=== PATIENT | female | born 1955 | race African-American/Black ===

== ENCOUNTER 2020-05-13 21:42 | Inpatient (IN) | payer MEDICARE, MEDICAID ==
[2020-05-13] MEDS ORDERED: Norepinephrine 8 MG/0.9% NS 250 ML ONE (21:49)
[2020-05-13] MEDS ORDERED: Cefepime 2 GM in Sodium Chloride 0.9% 100 ML IVPB SCH (22:15)
[2020-05-13 22:16] LABS: Actual Bicarbonate (HCO3a) 19.8 mEq/L (22-28); Analyzer IN Cardio ER; Base Excess (BEa) -8.9 mEq/L (-2.0 to +3.0); CO2 Tension 57.3 mmHg (35.0-45.0); Calcium, Ionized (arterial) 1.13 mmol/L (1.12-1.30); Carboxyhemoglobin (COHb) 0.7 gm% (0.0-3.0); Hemoglobin (Hb) 10.2 g/dL (12.0-16.0)
[2020-05-13 22:18] LABS: pH, Arterial 7.16 (7.35-7.45)
[2020-05-13 22:19] LABS: ALV-art Gradient 307.475 mmHg (0-20); Puncture Site LBA
[2020-05-13 22:20] LABS: Bilirubin Negative (Negative); Blood, Urine 1+ (Negative); Clarity Turbid (Clear); Glucose, Urine (Dipstick) 200 mg/dL (Negative); Ketone, Urine Negative (Negative); Leukocyte 250 Leu/uL (Negative); Nitrite Negative (Negative); Protein, Urine (Dipstick) 300 mg/dL (Neg-Trace); RBC/HPF 21-50 HPF (0-3); Specific Gravity, Urine 1.011 (1.002-1.036); Squamous Epithelial None Seen HPF (0-3); Urobilinogen Normal mg/dL (Less than 2); WBC/HPF Greater than 50 HPF (0-3)
[2020-05-13 22:22] LABS: Bacteria/HPF 1+ HPF (None Seen)
[2020-05-13 22:27] LABS: Alcohol Less than 10 mg/dL (Less than 10)
[2020-05-13 22:30] LABS: Albumin 3.4 g/dL (3.4-4.8)
[2020-05-13 22:31] LABS: Chloride 111 mmol/L (98-107); Potassium 5.9 mmol/L (3.5-5.1); Sodium 141 mmol/L (136-145)
[2020-05-13 22:32] LABS: Calcium 7.7 mg/dL (7.8-10.44); Globulin 3.4 g/dL (2.4-3.5); Glucose 267 mg/dL (80-115); Protein, Total 6.8 g/dL (5.8-8.1)
[2020-05-13 22:33] LABS: Carbon Dioxide 17 mmol/L (23-31)
[2020-05-13 22:34] LABS: Bilirubin, Total 0.3 mg/dL (0.2-1.2)
[2020-05-13 22:35] LABS: Alkaline Phosphatase 154 U/L (40-110); Calc. Creatinine Clearance 0 mL/min (70-130)
[2020-05-13 22:36] LABS: BUN (Urea Nitrogen) 48 mg/dL (9.8-20.1)
[2020-05-13 22:37] LABS: AST (SGOT) 148 U/L (5-34); Mean Corpuscular HGB CONC 30.7 g/dL (32.0-36.0); Mean Corpuscular Hemoglobin 29.7 pg (27.0-31.0); Mean Corpuscular Volume 96.9 fL (78.0-98.0); Mean Platelet Volume 10.5 fL (7.4-10.4); Platelet Count 200 thou/uL (130-400); RBC Distribution Width 18.6 % (11.5-14.5); Red Blood Cell (RBC) Count 3.38 mill/uL (4.20-5.40); White Blood Cell (WBC) Count 11.1 thou/uL (4.8-10.8)
[2020-05-13 22:38] LABS: ALT (SGPT) 103 U/L (8-55)
[2020-05-13 22:45] LABS: Acetaminophen Less than 6.0 mcg/mL (10.0-30.0); Salicylate Less than 8.0 mg/dL (15.0-30.0)
[2020-05-13 22:52] LABS: Anion Gap 19 mmol/L (10-20)
[2020-05-13 22:53] LABS: CKMB 3.5 ng/mL (0-6.6)
[2020-05-13 22:59] LABS: Band 9 % (5-11); Eosinophils 2 % (0-10); Lymphocytes 21 % (21-51); MDiff Complete? YES; Monocytes 2 % (0-10); Neutrophil 65 % (42-75)
[2020-05-13] MEDS ORDERED: Aspirin 300 MG Suppository ONE (22:59)
[2020-05-13] MEDS ORDERED: Vancomycin 1 GM/200 ML BAG ONE (23:14)
[2020-05-13 23:41] LABS: SARS-CoV-2 NAA Rapid Test Not Detected (NotDetected)
[2020-05-14 01:40] LABS: Troponin I 0.835 ng/mL (< 0.028)
[2020-05-14] MEDS ORDERED: DISCONTINUE PREVIOUS NARCOTIC PAIN MEDICATIONS AND BENZODIAZEPINES FS SCH (01:45)
[2020-05-14] MEDS ORDERED: Morphine 2 MG/ML VIAL SLOW IVP PRN (01:45)
[2020-05-14] MEDS ORDERED: Lorazepam 2 MG/ML VIAL SLOW IVP PRN (01:45)
[2020-05-14] MEDS ORDERED: Propofol BOLUS 1,000 MG/100 ML VIAL IV PRN (01:45)
[2020-05-14] MEDS ORDERED: Fentanyl BOLUS 250 ML IVPB PRN (01:45)
[2020-05-14] MEDS ORDERED: Ventilator Sedation Protocol 1 EACH FS SCH (02:00)
[2020-05-14 02:27] LABS: Lactic Acid 1.2 mmol/L (0.5-2.2)
[2020-05-14] MEDS ORDERED: Acetaminophen 325 MG TAB PO PRN (03:02)
[2020-05-14] MEDS ORDERED: Acetaminophen 650 MG Suppository PR PRN (03:02)
[2020-05-14 04:25] LABS: #Eosinphils 0.1 thou/uL (0.0-0.7); #Monocytes 0.5 thou/uL (0.11-0.59); #Neutrophils 8.2 thou/uL (1.40-6.50); %Basophils 0.3 % (0.0-1.0); %Eosinophils 0.5 % (0.0-10.0); %Lymphocytes 9.8 % (21.0-51.0); %Monocytes 5.1 % (0.0-10.0); %Neutrophils 84.3 % (42.0-75.0); Hemoglobin 9.6 g/dL (12.0-16.0); Mean Corpuscular HGB CONC 31.8 g/dL (32.0-36.0); Mean Corpuscular Hemoglobin 30.8 pg (27.0-31.0); Mean Corpuscular Volume 96.9 fL (78.0-98.0); Mean Platelet Volume 10.6 fL (7.4-10.4); Platelet Count 172 thou/uL (130-400); RBC Distribution Width 18.5 % (11.5-14.5); Red Blood Cell (RBC) Count 3.13 mill/uL (4.20-5.40); White Blood Cell (WBC) Count 9.7 thou/uL (4.8-10.8)
[2020-05-14 04:28] LABS: Anion Gap 13 mmol/L (10-20); BUN (Urea Nitrogen) 50 mg/dL (9.8-20.1); Calc. Creatinine Clearance 31 mL/min (70-130); Calcium 7.6 mg/dL (7.8-10.44); Carbon Dioxide 20 mmol/L (23-31); Chloride 112 mmol/L (98-107); Glucose 259 mg/dL (80-115); Potassium 5.3 mmol/L (3.5-5.1); Sodium 140 mmol/L (136-145)
[2020-05-14 04:46] LABS: Troponin I 2.702 ng/mL (< 0.028)
[2020-05-14] MEDS: hydrALAZINE 20 MG/ML VIAL SLOW IVP PRN (05:03)
[2020-05-14] MEDS ORDERED: Enoxaparin Sodium 120 MG/0.8 ML SYRINGE SC SCH (05:45)
[2020-05-14 06:21] LABS: Actual Bicarbonate (HCO3a) 19.7 mEq/L (22-28); Base Excess (BEa) -7.6 mEq/L (-2.0 to +3.0); CO2 Tension 47.7 mmHg (35.0-45.0); Calcium, Ionized (arterial) 1.09 mmol/L (1.12-1.30); Carboxyhemoglobin (COHb) 1.7 gm% (0.0-3.0); Hemoglobin (Hb) 9.9 g/dL (12.0-16.0); O2 Tension (PaO2), arterial 74.4 mmHg (> 80.0); Potassium - ABG Lab 5.52 mmol/L (3.70-5.30)
[2020-05-14 06:24] LABS: ALV-art Gradient 293.775 mmHg (0-20); Puncture Site LBA; pH, Arterial 7.23 (7.35-7.45)
[2020-05-14] MEDS ORDERED: Dextrose 5% in Water 1,000 ML IV PRN (07:30)
[2020-05-14] MEDS ORDERED: Dextrose 50% Abboject 50 ML SYRINGE IVP PRN (07:30)
[2020-05-14] MEDS ORDERED: Enoxaparin Sodium 30 MG/0.3 ML SYRINGE SC SCH (09:00)
[2020-05-14] MEDS: methylPREDNISolone Sod Succ 40 MG VIAL IVP SCH ×2 (10:54→20:53)
[2020-05-14] MEDS: cefTRIAXone\\ROCEPHIN 1 GM in Sodium Chloride 0.9% 100 ML IVPB SCH (10:55)
[2020-05-14] MEDS ORDERED: Fentanyl CADD 100 ML ONE (16:43)
[2020-05-14] MEDS: Fentanyl CADD 100 ML IV SCH (16:46)
[2020-05-14] MEDS: HumaLOG 300 UNITS/3 ML VIAL SC PRN (16:46)
[2020-05-14] MEDS: azaTHIOprine 50 MG TAB PO SCH (20:46)
[2020-05-14] MEDS: Carvedilol 25 MG TAB PO SCH (20:46)
[2020-05-14] MEDS ORDERED: Famotidine/PF 20 mg/2ml Vial SLOW IVP SCH (21:00)
[2020-05-14 22:17] LABS: Vancomycin, Random 8.4 ug/mL (See Comment)
[2020-05-14] MEDS ORDERED: VANCOMYCIN 1.25 GM/250 ML BAG 1.25 GM in Premix Bag 1 BAG IVPB SCH (23:00)
[2020-05-14] MEDS ORDERED: Vancomycin 1 GM in Premix Bag 1 BAG IVPB SCH (23:00)
[2020-05-14] MEDS: Propofol 1,000 MG/100 ML VIAL IV PRN (23:39)
[2020-05-15] MEDS: hydrALAZINE 20 MG/ML VIAL SLOW IVP PRN (02:00)
[2020-05-15 04:25] LABS: #Monocytes 0.5 thou/uL (0.11-0.59); #Neutrophils 12.4 thou/uL (1.40-6.50); %Basophils 0.2 % (0.0-1.0); %Eosinophils 0.1 % (0.0-10.0); %Lymphocytes 7.2 % (21.0-51.0); %Monocytes 3.5 % (0.0-10.0); %Neutrophils 89.1 % (42.0-75.0); Hemoglobin 8.6 g/dL (12.0-16.0); Mean Corpuscular HGB CONC 31.1 g/dL (32.0-36.0); Mean Corpuscular Hemoglobin 29.6 pg (27.0-31.0); Mean Corpuscular Volume 95.3 fL (78.0-98.0); Platelet Count 158 thou/uL (130-400); RBC Distribution Width 18.4 % (11.5-14.5); Red Blood Cell (RBC) Count 2.89 mill/uL (4.20-5.40); White Blood Cell (WBC) Count 13.9 thou/uL (4.8-10.8)
[2020-05-15] MEDS: HumaLOG 300 UNITS/3 ML VIAL SC PRN ×5 (04:46→21:38)
[2020-05-15 04:52] LABS: Anion Gap 15 mmol/L (10-20); BUN (Urea Nitrogen) 52 mg/dL (9.8-20.1); Calc. Creatinine Clearance 29 mL/min (70-130); Calcium 8.1 mg/dL (7.8-10.44); Carbon Dioxide 16 mmol/L (23-31); Chloride 114 mmol/L (98-107); Glucose 259 mg/dL (80-115); Potassium 5.4 mmol/L (3.5-5.1); Sodium 140 mmol/L (136-145)
[2020-05-15 06:48] LABS: Actual Bicarbonate (HCO3a) 18.5 mEq/L (22-28); Base Excess (BEa) -6.8 mEq/L (-2.0 to +3.0); CO2 Tension 36.1 mmHg (35.0-45.0); Calcium, Ionized (arterial) 1.17 mmol/L (1.12-1.30); Hemoglobin (Hb) 8.5 g/dL (12.0-16.0); O2 Tension (PaO2), arterial 66.7 mmHg (> 80.0); Potassium - ABG Lab 5.23 mmol/L (3.70-5.30); Puncture Site LBA; pH, Arterial 7.33 (7.35-7.45)
[2020-05-15 06:49] LABS: ALV-art Gradient 173.375 mmHg (0-20)
[2020-05-15] MEDS: Rosuvastatin 10 MG TAB PO SCH (08:34)
[2020-05-15] MEDS: Heparin 5,000 UNITS/ML VIAL SC SCH ×2 (08:34→21:37)
[2020-05-15] MEDS: methylPREDNISolone Sod Succ 40 MG VIAL IVP SCH ×2 (08:34→21:39)
[2020-05-15] MEDS: Pantoprazole 40 MG GRANULES PACKET PO SCH (08:34)
[2020-05-15] MEDS: Carvedilol 25 MG TAB PO SCH ×2 (08:34→21:43)
[2020-05-15] MEDS: Aspirin Chewable 81 MG TAB PO SCH (08:34)
[2020-05-15] MEDS: cefTRIAXone\\ROCEPHIN 1 GM in Sodium Chloride 0.9% 100 ML IVPB SCH (08:34)
[2020-05-15] MEDS: azaTHIOprine 50 MG TAB PO SCH ×2 (08:34→21:38)
[2020-05-15] MEDS ORDERED: Fentanyl CADD 100 ML ONE (09:11)
[2020-05-15] MEDS: Sodium Bicarbonate Tab 325 MG TAB PO SCH ×3 (12:40→21:38)
[2020-05-15] MEDS: LOKELMA 10 GM PACKET PO SCH (12:40)
[2020-05-15] MEDS ORDERED: Furosemide 40 MG/4 ML VIAL SLOW IVP SCH (16:00)
[2020-05-15] MEDS: Propofol 1,000 MG/100 ML VIAL IV PRN ×2 (18:54→22:36)
[2020-05-15] MEDS ORDERED: Pantoprazole 40 MG VIAL IVP SCH (21:00)
[2020-05-15 22:24] LABS: Vancomycin, Random 19.2 ug/mL (See Comment)
[2020-05-15] MEDS ORDERED: Vancomycin HCl 750 MG in Sodium Chloride 0.9% 250 ML 250 ML IVPB SCH (23:00)
[2020-05-16] MEDS: HumaLOG 300 UNITS/3 ML VIAL SC PRN ×6 (02:20→20:52)
[2020-05-16] MEDS: hydrALAZINE 20 MG/ML VIAL SLOW IVP PRN (04:00)
[2020-05-16] MEDS ORDERED: Fentanyl CADD 100 ML ONE ×2 (04:04→23:44)
[2020-05-16 04:18] LABS: #Lymphocytes 0.9 thou/uL (1.20-3.40); #Monocytes 0.4 thou/uL (0.11-0.59); #Neutrophils 10.7 thou/uL (1.40-6.50); %Basophils 0.1 % (0.0-1.0); %Lymphocytes 7.2 % (21.0-51.0); %Monocytes 3.5 % (0.0-10.0); %Neutrophils 89.1 % (42.0-75.0); Hemoglobin 8.6 g/dL (12.0-16.0); Mean Corpuscular HGB CONC 30.2 g/dL (32.0-36.0); Mean Corpuscular Hemoglobin 28.7 pg (27.0-31.0); Mean Corpuscular Volume 95.1 fL (78.0-98.0); Mean Platelet Volume 11.2 fL (7.4-10.4); Platelet Count 165 thou/uL (130-400); RBC Distribution Width 18.8 % (11.5-14.5); Red Blood Cell (RBC) Count 2.98 mill/uL (4.20-5.40)
[2020-05-16 04:39] LABS: Anion Gap 14 mmol/L (10-20); BUN (Urea Nitrogen) 71 mg/dL (9.8-20.1); Calc. Creatinine Clearance 27 mL/min (70-130); Calcium 8.5 mg/dL (7.8-10.44); Carbon Dioxide 19 mmol/L (23-31); Chloride 111 mmol/L (98-107); Glucose 262 mg/dL (80-115); Potassium 5.5 mmol/L (3.5-5.1); Sodium 138 mmol/L (136-145)
[2020-05-16] MEDS: Furosemide 40 MG/4 ML VIAL SLOW IVP SCH (08:01)
[2020-05-16] MEDS: Sodium Bicarbonate Tab 325 MG TAB PO SCH ×2 (08:02→20:54)
[2020-05-16] MEDS: Rosuvastatin 10 MG TAB PO SCH (08:02)
[2020-05-16] MEDS: Aspirin Chewable 81 MG TAB PO SCH (08:02)
[2020-05-16] MEDS: azaTHIOprine 50 MG TAB PO SCH ×2 (08:02→20:54)
[2020-05-16] MEDS: Pantoprazole 40 MG GRANULES PACKET PO SCH (08:02)
[2020-05-16] MEDS: Carvedilol 25 MG TAB PO SCH ×2 (08:02→21:04)
[2020-05-16] MEDS: Heparin 5,000 UNITS/ML VIAL SC SCH ×2 (08:03→20:53)
[2020-05-16] MEDS: methylPREDNISolone Sod Succ 40 MG VIAL IVP SCH ×3 (08:03→20:54)
[2020-05-16] MEDS ORDERED: Bacteriostatic Water 30 ML VIAL FS PRN (08:15)
[2020-05-16] MEDS: cefTRIAXone\\ROCEPHIN 1 GM in Sodium Chloride 0.9% 100 ML IVPB SCH (08:54)
[2020-05-16] MEDS: LOKELMA 10 GM PACKET PO SCH (10:09)
[2020-05-16] MEDS: Propofol 1,000 MG/100 ML VIAL IV PRN (13:40)
[2020-05-16 22:58] LABS: Vancomycin, Trough 20.2 ug/mL
[2020-05-16] MEDS ORDERED: Vancomycin 1 GM in Premix Bag 1 BAG IVPB SCH (23:00)
[2020-05-17] MEDS: HumaLOG 300 UNITS/3 ML VIAL SC PRN ×4 (01:22→20:53)
[2020-05-17] MEDS: Propofol 1,000 MG/100 ML VIAL IV PRN ×3 (02:32→20:46)
[2020-05-17 04:00] LABS: #Lymphocytes 0.8 thou/uL (1.20-3.40); #Monocytes 0.4 thou/uL (0.11-0.59); #Neutrophils 9.2 thou/uL (1.40-6.50); %Basophils 0.2 % (0.0-1.0); %Eosinophils 0.1 % (0.0-10.0); %Monocytes 3.8 % (0.0-10.0); %Neutrophils 87.9 % (42.0-75.0); Hemoglobin 8.2 g/dL (12.0-16.0); Mean Corpuscular HGB CONC 31.1 g/dL (32.0-36.0); Mean Corpuscular Hemoglobin 29.5 pg (27.0-31.0); Mean Platelet Volume 10.9 fL (7.4-10.4); Platelet Count 157 thou/uL (130-400); RBC Distribution Width 18.4 % (11.5-14.5); Red Blood Cell (RBC) Count 2.79 mill/uL (4.20-5.40); White Blood Cell (WBC) Count 10.5 thou/uL (4.8-10.8)
[2020-05-17 04:19] LABS: Anion Gap 16 mmol/L (10-20); BUN (Urea Nitrogen) 85 mg/dL (9.8-20.1); Calc. Creatinine Clearance 24 mL/min (70-130); Calcium 8.4 mg/dL (7.8-10.44); Carbon Dioxide 19 mmol/L (23-31); Chloride 114 mmol/L (98-107); Glucose 277 mg/dL (80-115); Potassium 5.5 mmol/L (3.5-5.1); Sodium 143 mmol/L (136-145)
[2020-05-17] MEDS: methylPREDNISolone Sod Succ 40 MG VIAL IVP SCH ×2 (09:00→20:45)
[2020-05-17] MEDS: LOKELMA 10 GM PACKET PO SCH (09:00)
[2020-05-17] MEDS: Aspirin Chewable 81 MG TAB PO SCH (09:00)
[2020-05-17] MEDS: Rosuvastatin 10 MG TAB PO SCH (09:00)
[2020-05-17] MEDS: Pantoprazole 40 MG GRANULES PACKET PO SCH (10:32)
[2020-05-17] MEDS: Furosemide 40 MG/4 ML VIAL SLOW IVP SCH (10:32)
[2020-05-17] MEDS: Carvedilol 25 MG TAB PO SCH ×2 (10:37→20:44)
[2020-05-17] MEDS: Heparin 5,000 UNITS/ML VIAL SC SCH ×2 (10:37→20:44)
[2020-05-17] MEDS: azaTHIOprine 50 MG TAB PO SCH ×2 (10:37→20:44)
[2020-05-17] MEDS: cefTRIAXone\\ROCEPHIN 1 GM in Sodium Chloride 0.9% 100 ML IVPB SCH (10:43)
[2020-05-17] MEDS: Sodium Bicarbonate Tab 325 MG TAB PO SCH ×2 (10:43→20:44)
[2020-05-17] MEDS ORDERED: LOKELMA 5 GM PACKET PO SCH (12:30)
[2020-05-17] MEDS ORDERED: Fentanyl CADD 100 ML ONE (18:57)
[2020-05-17] MEDS ORDERED: Vancomycin HCl 750 MG in Sodium Chloride 0.9% 250 ML 250 ML IVPB SCH (23:00)
[2020-05-18] MEDS: HumaLOG 300 UNITS/3 ML VIAL SC PRN ×2 (00:30→03:21)
[2020-05-18 03:57] LABS: #Lymphocytes 0.6 thou/uL (1.20-3.40); #Monocytes 0.4 thou/uL (0.11-0.59); #Neutrophils 8.3 thou/uL (1.40-6.50); %Eosinophils 0.1 % (0.0-10.0); %Lymphocytes 6.6 % (21.0-51.0); %Monocytes 4.7 % (0.0-10.0); %Neutrophils 88.5 % (42.0-75.0); Hemoglobin 8.6 g/dL (12.0-16.0); Mean Corpuscular HGB CONC 30.8 g/dL (32.0-36.0); Mean Corpuscular Hemoglobin 29.9 pg (27.0-31.0); Mean Corpuscular Volume 96.9 fL (78.0-98.0); Mean Platelet Volume 10.6 fL (7.4-10.4); Platelet Count 165 thou/uL (130-400); RBC Distribution Width 18.1 % (11.5-14.5); Red Blood Cell (RBC) Count 2.89 mill/uL (4.20-5.40); White Blood Cell (WBC) Count 9.4 thou/uL (4.8-10.8)
[2020-05-18 04:13] LABS: Anion Gap 17 mmol/L (10-20); BUN (Urea Nitrogen) 102 mg/dL (9.8-20.1); Calc. Creatinine Clearance 23 mL/min (70-130); Calcium 7.9 mg/dL (7.8-10.44); Carbon Dioxide 19 mmol/L (23-31); Chloride 113 mmol/L (98-107); Glucose 232 mg/dL (80-115); Potassium 5.6 mmol/L (3.5-5.1); Sodium 143 mmol/L (136-145)
[2020-05-18 07:49] LABS: Actual Bicarbonate (HCO3a) 18.9 mEq/L (22-28); Base Excess (BEa) -7.9 mEq/L (-2.0 to +3.0); Calcium, Ionized (arterial) 1.16 mmol/L (1.12-1.30); Carboxyhemoglobin (COHb) 0.8 gm% (0.0-3.0); Hemoglobin (Hb) 9.6 g/dL (12.0-16.0); O2 Tension (PaO2), arterial 134.8 mmHg (> 80.0); Potassium - ABG Lab 5.57 mmol/L (3.70-5.30)
[2020-05-18 07:54] LABS: Puncture Site LRA; pH, Arterial 7.25 (7.35-7.45)
[2020-05-18] MEDS: Propofol 1,000 MG/100 ML VIAL IV PRN ×2 (08:32→17:19)
[2020-05-18] MEDS: Sodium Bicarbonate Tab 325 MG TAB PO SCH (08:38)
[2020-05-18] MEDS: methylPREDNISolone Sod Succ 40 MG VIAL IVP SCH (08:39)
[2020-05-18] MEDS: Aspirin Chewable 81 MG TAB PO SCH (08:43)
[2020-05-18] MEDS: Furosemide 40 MG/4 ML VIAL SLOW IVP SCH (08:43)
[2020-05-18] MEDS: azaTHIOprine 50 MG TAB PO SCH (08:43)
[2020-05-18] MEDS: Pantoprazole 40 MG GRANULES PACKET PO SCH (08:43)
[2020-05-18] MEDS: Rosuvastatin 10 MG TAB PO SCH (08:43)
[2020-05-18] MEDS: Carvedilol 25 MG TAB PO SCH (08:43)
[2020-05-18] MEDS: Heparin 5,000 UNITS/ML VIAL SC SCH (08:44)
[2020-05-18] MEDS: cefTRIAXone\\ROCEPHIN 1 GM in Sodium Chloride 0.9% 100 ML IVPB SCH (08:48)
[2020-05-18] MEDS ORDERED: LOKELMA 5 GM PACKET PO SCH ×2 (09:00)
[2020-05-18 13:41] VITALS: BMI 41.4
[2020-05-18 14:19] VITALS: BP 122/61
[2020-05-18] MEDS: Fentanyl CADD 100 ML IV SCH (17:07)
[2020-05-18 17:22] VITALS: TEMP 98.8
== END 2020-05-18 17:41 | disposition hospice, inpatient (51) | DRG 870 ==
LOC: ERS 21:42 → CCU 05-14 00:10
PROVIDERS: ADMIT Student in an Organized Health Care Education/Training Program; ATTEND Internal Medicine
PROC: 5A1955Z Respiratory Ventilation, Greater than 96 Consecutive Hours (ICD-10-PCS; principal; 2020-05-14)
PROC: 3E033XZ Introduction of Vasopressor into Peripheral Vein, Percutaneous Approach (ICD-10-PCS; 2020-05-14)
PROC: 06HY33Z Insertion of Infusion Device into Lower Vein, Percutaneous Approach (ICD-10-PCS; 2020-05-14)
DX: A41.9 Sepsis, unspecified organism (principal); J96.01 Acute respiratory failure with hypoxia; G92 Toxic encephalopathy; G93.1 Anoxic brain damage, not elsewhere classified; E87.2 Acidosis; N30.00 Acute cystitis without hematuria; E87.0 Hyperosmolality and hypernatremia; N18.4 Chronic kidney disease, stage 4 (severe); Z68.41 Body mass index [BMI] 40.0-44.9, adult; I13.0 Hypertensive heart and chronic kidney disease with heart failure and stage 1 through stage 4 chronic kidney disease, or unspecified chronic kidney disease; I24.8 Other forms of acute ischemic heart disease; N17.9 Acute kidney failure, unspecified; T86.19 Other complication of kidney transplant; I50.30 Unspecified diastolic (congestive) heart failure; Z20.822 Contact with and (suspected) exposure to COVID-19; Z51.5 Encounter for palliative care; Z66 Do not resuscitate; R65.20 Severe sepsis without septic shock; E66.9 Obesity, unspecified; E78.5 Hyperlipidemia, unspecified; D63.1 Anemia in chronic kidney disease; E11.22 Type 2 diabetes mellitus with diabetic chronic kidney disease; R00.1 Bradycardia, unspecified; R74.01 Elevation of levels of liver transaminase levels; I25.10 Atherosclerotic heart disease of native coronary artery without angina pectoris; Y83.0 Surgical operation with transplant of whole organ as the cause of abnormal reaction of the patient, or of later complication, without mention of misadventure at the time of the procedure; E87.5 Hyperkalemia; E11.65 Type 2 diabetes mellitus with hyperglycemia; Z95.5 Presence of coronary angioplasty implant and graft; Z86.16 Personal history of COVID-19; Z87.891 Personal history of nicotine dependence; Z79.899 Other long term (current) drug therapy; Z79.82 Long term (current) use of aspirin; Z79.4 Long term (current) use of insulin; Z79.52 Long term (current) use of systemic steroids; Z78.1 Physical restraint status
CPT/HCPCS: 0240U; 36415; 36416; 36556; 36600; 51702; 70450; 71045; 80048; 80053; 80202; 80307; 81003; 81015; 82553; 82805; 83605; 83880; 84484; 85025; 87070; 87086; 87205; 93005; 93306; 94002; 94003; 94640; 95816; 95819; 96361; 96365; 96366; 96368; J0360; J0692; J0696; J1644; J1650; J1815; J1940; J1956; J2060; J2704; J2920; J3010; J3370; J3490; J7050; J7500; J7620; S0028

== ENCOUNTER 2020-05-18 17:47 | Inpatient (IN) | payer OTHER ==
[2020-05-18] MEDS ORDERED: Morphine 4 MG/ML VIAL SLOW IVP PRN (18:08)
[2020-05-18] MEDS ORDERED: Bisacodyl 10 MG SUPP PR PRN (18:08)
[2020-05-18] MEDS: Lorazepam 2 MG/ML VIAL SLOW IVP SCH (21:05)
[2020-05-18] MEDS ORDERED: Sodium Chloride 0.9% 1,000 ML IV SCH (23:45)
[2020-05-18] MEDS ORDERED: Fentanyl BOLUS 250 ML IVPB PRN (23:45)
[2020-05-18] MEDS ORDERED: Propofol BOLUS 1,000 MG/100 ML VIAL IV PRN (23:45)
[2020-05-18] MEDS ORDERED: Propofol 1,000 MG/100 ML VIAL IV PRN (23:45)
[2020-05-18] MEDS ORDERED: Fentanyl CADD 100 ML IV SCH (23:45)
[2020-05-19] MEDS: Lorazepam 2 MG/ML VIAL SLOW IVP SCH ×6 (01:22→20:16)
[2020-05-19] MEDS ORDERED: Morphine 4 MG/ML VIAL SLOW IVP SCH (23:00)
[2020-05-20] MEDS: Lorazepam 2 MG/ML VIAL SLOW IVP SCH ×6 (00:06→21:43)
[2020-05-20] MEDS: Morphine 4 MG/ML VIAL SLOW IVP SCH ×12 (00:06→22:18)
[2020-05-20] MEDS ORDERED: Scopolamine 1.5 mg/72 hour Patch TOP SCH (16:00)
[2020-05-21] MEDS: Morphine 4 MG/ML VIAL SLOW IVP SCH ×12 (00:07→22:15)
[2020-05-21] MEDS: Lorazepam 2 MG/ML VIAL SLOW IVP SCH ×6 (01:06→21:05)
[2020-05-21] MEDS ORDERED: Scopolamine 1.5 mg/72 hour Patch TOP SCH (18:00)
[2020-05-21] MEDS ORDERED: Atropine Sulfate 1% Ophth Soln 5 ml Bottle PO PRN (19:33)
[2020-05-22] MEDS: Morphine 4 MG/ML VIAL SLOW IVP SCH ×7 (00:13→12:55)
[2020-05-22] MEDS: Lorazepam 2 MG/ML VIAL SLOW IVP SCH ×4 (01:15→13:05)
[2020-05-22 09:46] VITALS: BP 90/53; TEMP 97.9
== END 2020-05-22 13:17 | disposition expired | DRG 951 ==
LOC: CCU 17:47 → T4-B 05-19 18:34
PROVIDERS: ADMIT Family Medicine; ATTEND Family Medicine
PROC: 5A1935Z Respiratory Ventilation, Less than 24 Consecutive Hours (ICD-10-PCS; principal; 2020-05-18)
DX: Z51.5 Encounter for palliative care (principal); Z66 Do not resuscitate; J96.01 Acute respiratory failure with hypoxia; A41.9 Sepsis, unspecified organism; R65.21 Severe sepsis with septic shock; E87.0 Hyperosmolality and hypernatremia; N17.9 Acute kidney failure, unspecified; N39.0 Urinary tract infection, site not specified; Z94.0 Kidney transplant status; G93.1 Anoxic brain damage, not elsewhere classified; R00.1 Bradycardia, unspecified; I46.9 Cardiac arrest, cause unspecified; R77.8 Other specified abnormalities of plasma proteins; E11.22 Type 2 diabetes mellitus with diabetic chronic kidney disease; R74.01 Elevation of levels of liver transaminase levels; I12.9 Hypertensive chronic kidney disease with stage 1 through stage 4 chronic kidney disease, or unspecified chronic kidney disease; Z95.5 Presence of coronary angioplasty implant and graft; Z79.899 Other long term (current) drug therapy
CPT/HCPCS: 94003; J2060; J2270; J2704